=== PATIENT | female | born 1985 | race American Indian/Alaskan Native ===

== ENCOUNTER 2021-05-22 14:03 | Emergency (ER) | payer MEDICAID ==
[2021-05-22 14:15] VITALS: BP 113/65
[2021-05-22 14:50] LABS: HCG Qualitative,Urine Positive (Negative)
--- NOTE | 2021-05-22 17:51 | Ultrasound Report ---
OB Ultrasound HISTORY: with pelvic pain. TECHNIQUE: Grayscale and color imaging performed. COMPARISON: None FINDINGS: Uterus measures 9.7 x 6.7 x 7.6 cm with a crescentic elongated cystic structure in the endo metrial canal measuring 4.4 x 1.0 cm. Mean diameter would give an age of 9 weeks and 5 days. A tiny l inear structure which may represent a pole is present and measures 3 mm which would correspond with an EGA of 5 weeks and 6 days. No cardiac activity demonstrated on this exam. The ovaries are unremarkable with no acute abnormality. No pelvic free fluid.. IMPRESSION: Intrauterine cystic structure could represent a gestational sac but the the appearance is crescentic which is unusual. Correlate with beta hCG level and consider close serial ultrasound foll ow-up as needed. Signer Name: Jerald So MD Signed: 05/22/2021 5:47 PM Workstation Name: [id number]
--- NOTE | 2021-05-22 18:45 | Emergency Department Report ---
ED General Adult HPI - General Chief complaint: Abdominal Pain Stated complaint: HEADACHE/SEVERE STOMACH PAIN Time Seen by Provider: 05/22/21 14:33 Source: patient Mode of arrival: Ambulatory Limitations: No Limitations - History of Present Illness Severity scale (0 -10): 7 - Related Data Previous Rx's Medication Instructions Recorded Last Taken Type Ibuprofen [Motrin 800 MG tab] 800 mg PO Q8HR PRN #20 tablet 07/08/20 Unknown Rx Allergies Allergy/AdvReac Type Severity Reaction Status Date / Time No Known Allergies Allergy Verified 04/09/21 12:50 ED Review of Systems ROS: Stated complaint: HEADACHE/SEVERE STOMACH PAIN Other details as noted in HPI Comment: All other systems reviewed and negative Constitutional: denies: chills, fever Eyes: denies: eye pain, eye discharge, vision change ENT: denies: ear pain, throat pain Respiratory: denies: cough, shortness of breath, wheezing Cardiovascular: denies: chest pain, palpitations Endocrine: no symptoms reported Gastrointestinal: denies: nausea, diarrhea Genitourinary: denies: urgency, dysuria, discharge Musculoskeletal: denies: back pain, joint swelling, arthralgia Skin: denies: rash, lesions Neurological: denies: headache, weakness, paresthesias Psychiatric: denies: anxiety, depression Hematological/Lymphatic: denies: easy bleeding, easy bruising ED Past Medical Hx - Past Medical History Previous Medical History?: Yes Additional medical history: Vaginal delivery x 6 - Surgical History Past Surgical History?: No - Social History Smoking Status: Never Smoker Substance Use Type: None - Medications Home Medications: Home Medications Medication Instructions Recorded Confirmed Last Taken Type Ibuprofen [Motrin 800 MG tab] 800 mg PO Q8HR PRN #20 tablet 07/08/20 Unknown Rx ED Physical Exam - General Limitations: No Limitations General appearance: alert, in no apparent distress - Head Head exam: Present: atraumatic, normocephalic - Eye Eye exam: Present: normal appearance - ENT ENT exam: Present: mucous membranes moist - Neck Neck exam: Present: normal inspection - Respiratory Respiratory exam: Present: normal lung sounds bilaterally. Absent: respiratory distress - Cardiovascular Cardiovascular Exam: Present: regular rate, normal rhythm. Absent: systolic murmur, diastolic murmur, rubs, gallop - GI/Abdominal GI/Abdominal exam: Present: soft, tenderness, normal bowel sounds. Absent: guarding, rebound - Extremities Exam Extremities exam: Present: normal inspection - Back Exam Back exam: Present: normal inspection - Neurological Exam Neurological exam: Present: alert, oriented X3, CN II-XII intact, normal gait - Psychiatric Psychiatric exam: Present: normal affect, normal mood - Skin Skin exam: Present: warm, dry, intact, normal color. Absent: rash, diaphoretic, erythema ED Course Vital Signs 05/22/21 14:14 Temperature 98.6 F Pulse Rate 76 Respiratory 20 Rate Blood Pressure 113/65 [Right] O2 Sat by Pulse 100 Oximetry ED Medical Decision Making - Radiology Data Radiology results: report reviewed [facility] [address] [place] [address] Ultrasound Report Signed Patient: TABITHA RODRIGUEZ MR#: [id number] : 1985 Acct:[id number] Age/Sex: 35 / F ADM Date: 05/22/21 Loc: ED Attending Dr: Ordering Physician: LONA SOLER Date of Service: 05/22/21 Procedure(s): US OB transvaginal Accession Number(s): [id number] cc: LONA SOLER OB Ultrasound HISTORY: with pelvic pain. TECHNIQUE: Grayscale and color imaging performed. COMPARISON: None FINDINGS: Uterus measures 9.7 x 6.7 x 7.6 cm with a crescentic elongated cystic structure in the endometrial canal measuring 4.4 x 1.0 cm. Mean diameter would give an age of 9 weeks and 5 days. A tiny linear structure which may represent a pole is present and measures 3 mm which would correspond with an EGA of 5 weeks and 6 days. No cardiac activity demonstrated on this exam. The ovaries are unremarkable with no acute abnormality. No pelvic free fluid.. IMPRESSION: Intrauterine cystic structure could represent a gestational sac but the the appearance is crescentic which is unusual. Correlate with beta hCG level and consider close serial ultrasound follow-up as needed. Signer Name: Jerald So MD Signed: 05/22/2021 5:47 PM Workstation Name: [id number] Transcribed By: SHERIF Dictated By: Jerald So MD Electronically Authenticated By: Jerald So MD Signed Date/Time: 05/22/211746 DD/ 43 TD/TT: Critical care attestation.: If time is entered above; I have spent that time in minutes in the direct care of this critically ill patient, excluding procedure time. ED Disposition Clinical Impression: Discomfort during Disposition: 01 HOME / SELF CARE / HOMELESS Is pt being admited?: No Does the pt Need Aspirin: No Condition: Stable Instructions: Abdominal Pain (ED), Cardiac Contusion, Care, and Travel Additional Instructions: Seen emergency department for pelvic discomfort which did show a positive and a possible early intrauterine sac is imperative that you reevaluate your hCG and for to 5 days to ensure that it is continue to elevate be sure to follow-up within [facility] you may need to repeat an ultrasound within the next 2 weeks Referrals: [facility] [Provider Group] - 3-5 Days
== END 2021-05-22 19:28 | disposition home or self-care (01) ==
LOC: ED 14:03
DX: O26.891 Other specified pregnancy related conditions, first trimester (principal); R51.9 Headache, unspecified; R10.9 Unspecified abdominal pain; Z3A.09 9 weeks gestation of pregnancy
CPT/HCPCS: 36415; 76801; 76817; 81025; 84702; 99284